=== PATIENT | female | born 1995 | race Caucasian/White ===

== ENCOUNTER 2019-04-18 10:55 | Emergency (ER) | payer BC, MEDICAID ==
--- NOTE | 2019-04-18 12:02 | EDM.PDOC ---
Scribed by Sulema Campbell 04/18/19 1158 for Eugenio Manning MD ED HPI GENERAL MEDICAL PROBLEM - General Chief Complaint: Lower Extremity Injury/Pain Stated Complaint: RIGHT ANKLE/LEG INJURY Time Seen by Provider: 04/18/19 11:10 Source of Information: Reports: Patient, RN, RN Notes Reviewed History Limitations: Reports: No Limitations - History of Present Illness INITIAL COMMENTS - FREE TEXT/NARRATIVE: Patient presents to ER by POV. She states she twisted her right ankle. She slipped outside of [employer]. Denies any other injury. Onset: Today Duration: Getting Worse Location: Reports: Lower Extremity, Right Quality: Reports: Ache Severity: Moderate Improves with: Reports: None Worsens with: Reports: None Associated Symptoms: Reports: No Other Symptoms Review of Systems - Review of Systems Review Of Systems: Comprehensive ROS is negative, except as noted in HPI. ED EXAM, GENERAL - Physical Exam Exam: See Below Exam Limited By: No Limitations General Appearance: Alert, WD/WN, No Apparent Distress Head: Atraumatic, Normocephalic Respiratory/Chest: No Respiratory Distress Cardiovascular: Normal Peripheral Pulses Extremities: No Pedal Edema, Normal Capillary Refill, Joint Swelling (right lateral ankle, tender to palpation, faint bruising, skin is intact.), Limited Range of Motion (right ankle due to pain. ) Neurological: Alert, No Motor/Sensory Deficits Psychiatric: Normal Mood Skin Exam: Warm, Dry, Intact, Normal Color, No Rash ED TRAUMA EXTREMITY PROCEDURES - Splinting Right Lower Extremity Splint Site: Rt ankle Pre-Procedure NV Status: Normal Post-Procedure NV Status: Normal Splint Material: Boot Orthotic Applied & Form Fitted By: Nurse Provider Post-Splint Application NV Check: NV Status Normal, Good Position Complications: No Course - Vital Signs Last Recorded V/S: Last Vital Signs Temp 98.1 F 04/18/19 11:33 Pulse 78 04/18/19 11:33 Resp 16 04/18/19 11:33 BP 91/47 L 04/18/19 11:33 Pulse Ox 99 04/18/19 11:33 - Orders/Labs/Meds Orders: Active Orders 24 hr Category Date Time Status Ankle Min 3V Rt [CR] Urgent Exams 04/18/19 11:16 Taken DME for Discharge [COMM] Routine Oth 04/18/19 11:49 Ordered DME for Discharge [COMM] Routine Oth 04/18/19 11:49 Ordered - Radiology Interpretation Free Text/Narrative:: XR Right Ankle: distal tibia with a posterior avulsion type fracture, see rad. report. - Re-Assessments/Exams Free Text/Narrative Re-Assessment/Exam: 04/18/19 11:59 Pt declines pain medication. Departure - Departure Time of Disposition: 11:53 Disposition: Home, Self-Care 01 Condition: Good Clinical Impression: Fracture of distal end of tibia Qualifiers: Encounter type: initial encounter Fracture type: closed Fracture morphology: other fracture Laterality: right Qualified Code(s): S82.391A - Other fracture of lower end of right tibia, initial encounter for closed fracture - Discharge Information *PRESCRIPTION DRUG MONITORING PROGRAM REVIEWED*: Not Applicable *COPY OF PRESCRIPTION DRUG MONITORING REPORT IN PATIENT RAVINDRA: Not Applicable Instructions: Tibial Fracture, Adult, Crutch Use, Adult, [id number] Forms: ED Department Discharge Additional Instructions: Wear right boot immobilizer, may remove to sleep and shower. Use crutches for non-weight bearing on right foot. Rest, ice pack, and elevate right ankle to reduce pain and swelling. Follow up with a artificial glass eye maker or orthopedic surgeon when you return home this week. Sepsis Event Note - Focused Exam Vital Signs: Vital Signs Temp Pulse Resp BP Pulse Ox 04/18/19 11:33 98.1 F 78 16 91/47 L 99 Date Exam was Performed: 04/18/19 Time Exam was Performed: 11:53 - My Orders Last 24 Hours: My Active Orders 04/18/19 11:16 Ankle Min 3V Rt [CR] Urgent 04/18/19 11:49 DME for Discharge [COMM] Routine DME for Discharge [COMM] Routine - Assessment/Plan Last 24 Hours: My Active Orders 04/18/19 11:16 Ankle Min 3V Rt [CR] Urgent 04/18/19 11:49 DME for Discharge [COMM] Routine DME for Discharge [COMM] Routine I have read and agree with the documentation that has been completed regarding this visit. By signing this record, I attest that the documentation was completed in my physical presence and is an accurate record of the encounter.
== END 2019-04-18 12:23 | disposition home or self-care (01) ==
LOC: DL.ED 10:55
DX: S82.301A Unspecified fracture of lower end of right tibia, initial encounter for closed fracture (principal); W18.40XA Slipping, tripping and stumbling without falling, unspecified, initial encounter; X50.1XXA Overexertion from prolonged static or awkward postures, initial encounter; Y92.89 Other specified places as the place of occurrence of the external cause
CPT/HCPCS: 73610-RT; 99283-25